=== PATIENT | male | born 1980 | race Caucasian/White ===

== ENCOUNTER 2019-08-14 10:50 | Outpatient (CLI) | payer OTHER, SELFPAY ==
[2019-08-14 11:00] LABS: Basophils Absolute Auto 0.05 K/mm3 (0.00-0.10); Basophils Percent Auto 0.7 % (0.0-1.0); Eosinophils Absolute Auto 0.15 K/mm3 (0.02-0.50); Eosinophils Percent Auto 2.2 % (1.0-6.0); Hematocrit 44.1 % (40.0-54.0); Hemoglobin 15.4 g/dL (14.0-18.0); Immature Granulocyte Absolute 0.03 K/mm3 (0.00-0.00); Immature Granulocyte Percent A 0.4 % (0.0-0.0); Lymphocytes Absolute Auto 2.16 K/mm3 (1.10-4.50); Mean Corpuscular HGB Conc 34.9 g/dL (32.0-36.0); Mean Corpuscular Volume 85.8 fL (78.0-102.0); Mean Platelet Volume 10.4 fl (8.7-11.0); Monocytes Absolute Auto 0.39 K/mm3 (0.10-0.90); Monocytes Percent Auto 5.8 % (2.0-11.0); Neutrophils Percent Auto 58.9 % (50.0-70.0); Platelet Count Result 265 K/mm3 (150-420); Red Blood Count 5.14 M/mm3 (4.70-6.10); Red Cell Distribution Width 12.9 % (11.6-14.4); White Blood Count 6.8 K/mm3 (4.8-10.8)
[2019-08-14 12:13] LABS: Alanine Aminotransferase 36 U/L (16-63); Albumin Level 4.4 g/dL (3.4-5.0); Alkaline Phosphatase 83 U/L (46-116); Anion Gap 11.6 mmol/L (7-16); Aspartate Amino Transferase 18 U/L (15-37); Bilirubin,Total 0.5 mg/dL (0.00-1.00); Blood Urea Nitrogen 22 mg/dL (7-18); Calcium 9.2 mg/dL (8.5-10.1); Carbon Dioxide 28 mmol/L (21-32); Chloride 103 mmol/L (98-108); Cholesterol 238 mg/dL (0-200); Estimated Glomerular Filt Rate > 60; Glucose 104 mg/dL (70-99); HDL Direct 30 mg/dL (40-60); LDL Cholesterol Calculated 182 mg/dL (<130); Osmolality Calculated 289 mOsm/kg (285-295); Potassium 4.6 mmol/L (3.5-5.1); Sodium 138 mmol/L (136-145); Total Protein 7.6 g/dL (6.4-8.2); Triglycerides 131 mg/dL (0-150)
[2019-08-14 12:48] LABS: Thyroid Stimulating Hormone Reflex 0.21 u/IU/mL (0.36-3.74)
[2019-08-14 12:49] LABS: Free T4 Free Thyroxine Reflex 0.94 ng/dL (0.76-1.46)
== END 2019-08-14 10:51 | disposition home or self-care (01) ==
LOC: CHSLAB 10:52
PROVIDERS: PCP Family Medicine; Visit Provider Family Medicine
DX: I10 Essential (primary) hypertension (principal)
CPT/HCPCS: 36415; 80053; 80061; 84439; 84443; 85025

== ENCOUNTER 2019-09-27 10:37 | Outpatient (CLI) | payer OTHER, SELFPAY ==
[2019-09-27 11:34] LABS: T4 Thyroxine 5.97 ug/dL (5.53-11.0)
[2019-09-27 11:47] LABS: Total Triiodothyronine (T3) 1.17 NG/ML (0.97-1.69)
[2019-09-27 12:02] LABS: Free T4 Free Thyroxine 1.14 ng/mL (0.78-2.19)
[2019-09-30 08:30] LABS: T3 Reverse 12 ng/dL (8-25)
== END 2019-09-27 10:38 | disposition home or self-care (01) ==
PROVIDERS: PCP Family Medicine; Visit Provider Family Medicine
DX: R94.6 Abnormal results of thyroid function studies (principal)
CPT/HCPCS: 36415; 84436; 84439; 84480; 84482

== ENCOUNTER 2020-02-21 14:31 | Outpatient (CLI) | payer OTHER, SELFPAY ==
--- NOTE | ~2020-02-21 | XR_ITS ---
EXAMINATION: XR chest 2V 02/21/2020 14:45 INDICATION: Cough for one week. Sore throat. PROCEDURE: 2 view chest COMPARISON: 12/03/2017 FINDINGS: The lungs are clear. The cardiomediastinal silhouette is within normal limits. There are no pleural effusions. There is no pneumothorax suspected. IMPRESSION: 1: NO ACUTE CARDIOPULMONARY DISEASE. Reviewed, dictated and finalized at location A.
== END 2020-02-21 14:32 | disposition home or self-care (01) ==
LOC: CHSIMG 14:33
PROVIDERS: PCP Family Medicine; Visit Provider Family Medicine
DX: R05 Cough (principal)
CPT/HCPCS: 71046

== ENCOUNTER 2020-02-29 18:47 | Emergency (ER) | payer OTHER, SELFPAY ==
--- NOTE | ~2020-02-29 | XR_ITS ---
EXAMINATION: XR chest 2V DATE: 02/29/2020 19:21 INDICATION: Left-sided chest pain. Bronchitis. TECHNIQUE: PA and lateral views of the chest were obtained. COMPARISON: Chest radiograph dated 02/21/2020 and thoracic spine radiograph dated 05/01/2019 FINDINGS: The lungs remain clear with no focal airspace opacities, pulmonary edema, pleural effusion or pneumot horax. The cardiomediastinal silhouette is normal. Unchanged chronic midthoracic compression fracture . Mild thoracic spondylosis. IMPRESSION: 1. No acute cardiopulmonary disease. Reviewed, dictated and finalized at location A.
[2020-02-29 18:52] VITALS: BP 149/99; PULSE 100; RESP 17; TEMP 36.8; O2SAT 98
[2020-02-29 18:55] VITALS: PULSE 105
--- NOTE | 2020-02-29 18:56 | ECG_ITS ---
Measurements Intervals [place] Rate: 96 P: 45 VT: 168 QRS: 12 QRSD: 95 T: 31 QT: 347 QTc: 440 Interpretive Statements SINUS RHYTHM NORMAL ECG Electronically Signed On 02-29-2020 20:32:02 CDT by Ernie Hua D.O.
[2020-02-29 19:04] LABS: Basophils Absolute Auto 0.1 K/mm3 (0.0-0.1); Basophils Percent Auto 0.7 % (0.2-1.2); Eosinophils Absolute Auto 0.2 K/mm3 (0-0.3); Eosinophils Percent Auto 2.5 % (0-4.4); Hematocrit 40.5 % (42.0-52.0); Hemoglobin 14.4 g/dL (14.0-18.0); Immature Granulocyte Absolute 0.04 K/mm3 (0.00-0.031); Immature Granulocyte Percent A 0.5 % (0-0.5); Lymphocytes Absolute Auto 3.19 K/mm3 (0.9-3.2); Lymphocytes Percent Auto 37.8 % (18.3-44.2); Mean Corpuscular HGB Conc 35.6 g/dl (32-36); Mean Corpuscular Volume 84.4 fl (80-100); Mean Platelet Volume 10.2 fl (7.4-10.4); Monocytes Absolute Auto 0.5 K/mm3 (0.1-0.6); Neutrophils Absolute Auto 4.4 K/mm3 (1.3-6.7); Neutrophils Percent Auto 52.5 % (45.5-73.1); Platelet Count Result 285 k/mm3 (150-375); White Blood Count 8.4 K/mm3 (4.5-10.0)
[2020-02-29 19:15] LABS: Anion Gap 8 mmol/L (8-16); Blood Urea Nitrogen 20 mg/dL (9-20); Calcium 9.5 mg/dL (8.4-10.2); Carbon Dioxide 30 mmol/L (22-30); Chloride 103 mmol/L (98-107); Estimated CRCL calculation 106 ml/min; Estimated Glomerular Filt Rate > 60; Glucose 110 mg/dL (75-110); INR 0.9; Potassium 4.4 mmol/L (3.4-5.0); Sodium 141 mmol/L (137-145)
[2020-02-29 19:16] LABS: Partial Thromboplastin Time 28.1 SECONDS (22.3-36.8)
[2020-02-29 19:27] LABS: Troponin I < 0.012 ng/mL (0.000-0.034)
[2020-02-29 19:30] VITALS: BP 136/95; PULSE 88; RESP 18; O2SAT 99
--- NOTE | 2020-02-29 19:43 | ED.CHESTPAIN ---
HPI - Chest Pain General Chief Complaint: Chest Pain Stated Complaint: CP Time Seen by Provider: 02/29/20 19:25 History of Present Illness HPI narrative: Patient is a 39-year-old male who presents to the ER with chest pain. Patient reports the chest pain has been intermittent over the last 3 to 4 days. Last maybe 10 minutes at a time. Its worse when he picks up his children or is active with his upper extremities. No fevers or chills or sweats. No productive cough. It occurs on the left lower aspect of his chest wall and also in the central part. There is no additional radiation. No sweats/nausea/vomiting. No previous coronary disease. No family history of heart disease. 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 Patient also reports that he had previously been diagnosed with some bronchitis in the last week and was treated by his doctor. Unsure if symptoms are related to coughing. Related Data Home Medications Medication Instructions Recorded Confirmed amitriptyline 25 mg PO HS 04/28/19 02/21/20 escitalopram oxalate [Lexapro] 20 mg PO DAILY 04/28/19 02/21/20 lisinopril 10 mg PO DAILY 04/28/19 02/21/20 Allergies Allergy/AdvReac Type Severity Reaction Status Date / Time codeine Allergy Mild Hives Verified 02/29/20 18:57 tramadol Allergy Unknown Rash Verified 02/29/20 18:57 Review of Systems Review of Systems: All systems reviewed & are unremarkable except as noted in HPI and below Constitutional: Constitutional: Denies chills, Denies fever(s) and Denies weakness ENT: Denies nasal congestion and Denies sore throat Cardiovascular: Cardiovascular: Reports chest pain, Denies rapid heart rate and Denies radiating jaw, neck or arm pain Respiratory: Respiratory: Reports cough, Denies dyspnea and Denies wheezing Gastrointestinal: Gastrointestinal: Denies abdominal pain, Denies nausea and Denies vomiting PMF Past Medical History Medical History (Updated 02/29/20 @ 19:52 by Hernandez Bauer MD) Anxiety Bladder wall thickening DDD (degenerative disc disease), thoracolumbar ERIKA (generalized anxiety disorder) HTN (hypertension) Hypertension Surgical History Surgical History (Updated 02/29/20 @ 19:46 by Hernandez Bauer MD) No history of previous surgery Social History Social History Years smoked: 19 Smoking status: Former smoker Smoking end date: 05/31/12 Additional smoking assessment comments: Lee Ann uses e-cigarettes 04/18/19 Alcohol intake: never Substance use: former Substance use type: does not use Other substance usage details: Reports he had been in drug rehab in the past . 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 HEAD: Normocephalic, atraumatic. ENT: Mucous membranes moist. CHEST: Clear to auscultation. No respiratory distress. No reproducible chest wall pain. HEART: Regular rate and rhythm. No murmur heard. Normal peripheral pulses. ABDOMEN: Soft, nontender, nondistended. EXTREMITIES: Normal range of motion. No edema. SKIN: Warm, dry, no rash. NEURO: Alert and oriented x3. Course Course Emergency Course: Musculoskeletal pain versus pleurisy. Discharge home. Patient verbalized understanding of treatment plan. Vital Signs Vital signs: Vital Signs Temperature 98.3 F 02/29/20 18:52 Pulse Rate 100 02/29/20 18:52 Respiratory Rate 17 02/29/20 18:52 Blood Pressure 149/99 H 02/29/20 18:52 Pulse Oximetry 98 02/29/20 18:52 Temperature 98.3 F 02/29/20 18:52 Pulse Rate 75 02/29/20 20:23 Respiratory Rate 15 02/29/20 20:23 Blood Pressure 106/82 02/29/20 20:23 Pulse Oximetry 95 02/29/20 20:23 MDM - Chest Pain Lab Data Result diagrams: 02/29/20 18:58 02/29/20 18:58 Labs: Lab Re
[2020-02-29 20:23] VITALS: BP 106/82; PULSE 75; RESP 15; O2SAT 95
[2020-02-29 21:25] VITALS: BP 117/83; PULSE 73; RESP 16; O2SAT 100
== END 2020-02-29 21:30 | disposition home or self-care (01) ==
PROVIDERS: Emergency Medicine; Emergency Provider Emergency Medicine; PCP Family Medicine
DX: R07.9 Chest pain, unspecified (principal); M51.35 Other intervertebral disc degeneration, thoracolumbar region; F41.1 Generalized anxiety disorder; I10 Essential (primary) hypertension; Z87.891 Personal history of nicotine dependence
CPT/HCPCS: 36415; 71046; 80048; 84484; 85025; 85610; 85730; 93005; 99284

== ENCOUNTER 2020-03-21 23:15 | Emergency (ER) | payer OTHER, SELFPAY ==
[2020-03-21 23:25] VITALS: BP 136/72; PULSE 111; RESP 22; TEMP 37; O2SAT 99
--- NOTE | 2020-03-22 | PC.NURSE ---
Pt stated he was currently suicidal but had no plan. When asked if he had ever made a plan in the past he stated well i tried but it didnt work. Pt refusing to change into green scrubs and allow staff to obtain vital signs. Pt also asked to surrender his personal belongings until he can be evaluated by Crisis which he refused. Pt refusing to stay in his room stating he is going to leave. He is agitated and keeps grabbing at his chest and his clothing. Pt wandering out into hallways and laying on the floor, visibly upset and grabbing his chest. RN asked if he was having chest pain and asked if staff could obtain an EKG. Pt stated my heart is fine i had labs drawn already, its fine. Pt did consent to going into a different room and allowed staff to obtain vital signs and an EKG.
[2020-03-22] MEDS: HALOPERIDOL LACTATE 5 MG/ML VIAL IM (00:03)
[2020-03-22] MEDS: LORazepam INJ (*CRX) 2 MG/ML VIAL IM (00:03)
--- NOTE | 2020-03-22 00:10 | PC.NURSE ---
Pt stated he was currently suicidal but had no plan. When asked if he had ever made a plan in the past he stated well i tried but it didnt work. Pt refusing to change into green scrubs and allow staff to obtain vital signs. Pt also asked to surrender his personal belongings until he can be evaluated by Crisis which he refused. Pt refusing to stay in his room stating he is going to leave. He is agitated and keeps grabbing at his chest and his clothing. Pt wandering out into hallways and laying on the floor, visibly upset and grabbing his chest. This RN asked if he was having chest pain and asked him if staff could obtain an EKG. Pt stated my heart is fine I had labs drawn already, its fine. Pt did consent to going into a different room and allowed staff to obtain vital signs and an EKG. He was still restless and rolling around on the stretcher. He then tried to leave the room again when asked if he could change into the green scrubs and surrender his cellphone. Pt became upset and took off running through the nurses station attempting to leave the unit. Pt was thrashing at staff and subdued by security. Local PD was called to assist. Pt taken back to room where he was thrashing and verbally threatening staff. Pt placed in locking restraints per physician order. Orders obtained for haldol and ativan which were then administered. Pt continued to thrash and yell. Pt stated that he had been drinking and was a drug addict but would not tell staff the drugs he had taken. He only stated that he was being seen by pain management for back pain and was taking Lyrica. Will continue to monitor patient at this time. Sitter and security at bedside.
--- NOTE | 2020-03-22 00:38 | ED.ANXIETY ---
HPI - Anxiety General Chief Complaint: Anxiety Stated Complaint: si Time Seen by Provider: 03/21/20 23:51 Source: patient, EMS and RN notes reviewed Mode of arrival: EMS Limitations: no limitations History of Present Illness HPI narrative: Patient is a 39-year-old male who arrives by EMS. Per EMS patient called because of anxiety. He has EtOH on board. In route he reported that he was suicidal to PD. Patient arrived in ED and stated suicidal ideations without a plan to RN. Per protocol patient's belongings were attempted to be held and patient decided that he did not want to stay any longer in the emergency department. Patient made attempt to flee, aggressive with staff and security. MD complaint: anxiety and other (SI) Related Data Home Medications Medication Instructions Recorded Confirmed amitriptyline 25 mg PO HS 04/28/19 02/21/20 escitalopram oxalate [Lexapro] 20 mg PO DAILY 04/28/19 02/21/20 lisinopril 10 mg PO DAILY 04/28/19 02/21/20 Allergies Allergy/AdvReac Type Severity Reaction Status Date / Time codeine Allergy Mild Hives Verified 02/29/20 18:57 tramadol Allergy Unknown Rash Verified 02/29/20 18:57 Review of Systems Review of Systems: Narrative: CONSTITUTIONAL: Denies fever, chills, or sweats. EYES: Denies visual changes, redness, or discharge. ENT: Denies rhinorrhea, congestion, sore throat, or otalgia. CARDIOVASCULAR: Denies chest pain, palpitations, or edema. RESPIRATORY: Denies cough or dyspnea. GASTROINTESTINAL: Denies abdominal pain, nausea, vomiting, or diarrhea. GENITOURINARY: Denies dysuria or hematuria. SKIN: Denies rash or itching. MUSCULOSKELETAL: Denies back pain, joint pain, or myalgia. NEUROLOGIC: Denies headache, numbness, dizziness, or weakness. PSYCHIATRIC: Reports anxiety or depression. [facility] Past Medical History Medical History Anxiety Bladder wall thickening DDD (degenerative disc disease), thoracolumbar ERIKA (generalized anxiety disorder) HTN (hypertension) Hypertension Surgical History Surgical History No history of previous surgery Family History Family History Father Hepatitis C Social History Social History Years smoked: 19 Smoking status: Former smoker Smoking end date: 05/31/12 Additional smoking assessment comments: Lee Ann uses e-cigarettes 04/18/19 Alcohol intake: never Substance use: former Substance use type: does not use Other substance usage details: Reports he had been in drug rehab in the past . 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 EYES: No redness or drainage. Conjunctiva are normal. ENT: Mucous membranes pink and moist. CHEST: No respiratory distress. Clear to auscultation. HEART: Regular rate and rhythm. No murmur appreciated. Normal peripheral pulses. GI: Soft, nontender without rebound, or guarding. EXTREMITIES: Normal range of motion. SKIN: Warm, dry, no rash. NEURO: No focal deficits. Alert and oriented x3. PSYCH: Patient appears anxious, expresses suicidal ideation to staff. Course Reevaluation(s) Reevaluation #1: Patient released from restraints at this time. Patient appears calm and cooperative and aware that if he becomes violent or aggressive that restraints could happen again. Patient verbal contract for safety at this time. Date: 03/22/20 Time: 00:55 Vital Signs Vital signs: Vital Signs Temperature 37.0 C 03/21/20 23:25 Pulse Rate 111 H 03/21/20 23:25 Respiratory Rate 22 H 03/21/20 23:25 Blood Pressure 136/72 03/21/20 23:25 Pulse Oximetry 99
[2020-03-22 00:51] LABS: Basophils Absolute Auto 0.1 K/mm3 (0.0-0.1); Basophils Percent Auto 0.9 % (0.2-1.2); Eosinophils Absolute Auto 0.1 K/mm3 (0-0.3); Eosinophils Percent Auto 1.7 % (0-4.4); Hematocrit 42.7 % (42.0-52.0); Hemoglobin 15.1 g/dL (14.0-18.0); Immature Granulocyte Absolute 0.05 K/mm3 (0.00-0.031); Immature Granulocyte Percent A 0.7 % (0-0.5); Lymphocytes Percent Auto 49.4 % (18.3-44.2); Mean Corpuscular HGB Conc 35.4 g/dl (32-36); Mean Corpuscular Hemoglobin 30.1 pg (26-34); Mean Corpuscular Volume 85.2 fl (80-100); Mean Platelet Volume 10.2 fl (7.4-10.4); Monocytes Absolute Auto 0.5 K/mm3 (0.1-0.6); Monocytes Percent Auto 6.1 % (2.6-8.5); Neutrophils Absolute Auto 3.2 K/mm3 (1.3-6.7); Neutrophils Percent Auto 41.2 % (45.5-73.1); Platelet Count Result 349 k/mm3 (150-375); Red Blood Count 5.01 M/mm3 (4.6-6.20); Red Cell Distribution Width 13.8 % (11.5-14.5); White Blood Count 7.7 K/mm3 (4.5-10.0)
[2020-03-22 01:03] LABS: Ethanol 224 mg/dL (<10)
[2020-03-22 01:05] LABS: Alanine Aminotransferase 24 U/L (4-50); Albumin Level 4.4 g/dL (3.5-5.1); Alkaline Phosphatase 116 U/L (38-126); Anion Gap 21 mmol/L (8-16); Aspartate Amino Transferase 27 U/L (17-59); Bilirubin,Total 0.3 mg/dL (0.2-1.3); Blood Urea Nitrogen 15 mg/dL (9-20); Carbon Dioxide 17 mmol/L (22-30); Chloride 110 mmol/L (98-107); Estimated CRCL calculation 107 ml/min; Estimated Glomerular Filt Rate > 60; Glucose 106 mg/dL (75-110); Potassium 3.1 mmol/L (3.4-5.0); Sodium 148 mmol/L (137-145)
[2020-03-22 01:35] LABS: Thyroid Stimulating Hormone 0.215 uIU/mL (0.465-4.680)
[2020-03-22 02:41] LABS: Add Urine Microscopic? YES; Appearance Urine Clear (Clear); Bilirubin Urine Negative (Negative); Blood Urine 1+ (Negative); Color Urine Yellow (Yellow); Glucose Urine UA Negative (Negative); Ketones Urine Trace mg/dL (Negative); Leukocyte Esterase Ur Negative LEU/UL (Negative); Mucus Urine Rare /lpf; Nitrate Urine Negative (Negative); Protein Urine 1+ mg/dL (Negative); RBC Urine 0-2 /hpf (0-2); Specific Grav Ur 1.017 (1.001-1.035); Squamous Epithelial Cell Urine Rare /hpf (Few); Urobilinogen Urine Negative mg/dL (<2.0); WBC Urine 0-3 /hpf
[2020-03-22 02:45] LABS: Amphetamine Screen Urine Positive (Negative); Barbiturate Screen Urine Negative (Negative); Benzodiazepines Screen Urine Negative (Negative); Cannabinoid Screen Urine Positive (Negative); Cocaine Screen Urine Negative (Negative); Methadone Screen Urine Negative (Negative); Opiate Screen Urine Negative (Negative); Phencyclidine Screen Urine Negative (Negative)
[2020-03-22 03:27] VITALS: BP 128/72; PULSE 78; RESP 16; O2SAT 99
[2020-03-22 06:41] LABS: Ethanol 91 mg/dL (<10)
[2020-03-22 07:14] VITALS: BP 145/94; PULSE 87; RESP 18; O2SAT 96
--- NOTE | 2020-03-22 07:19 | PC.NURSE ---
Pt allows this RN to do vitals without incident. This RN asked pt is he has ever had thought of harming or killing himself, pt replied no , I then asked pt if in the past month if he had a plan to harm or kill himself. Pt then replies no . I asked pt if he wanted breakfast and he stated yes . Pt also request a cold soda . medical laboratory technologist took pt a soda. This RN informed that pts [place] suicide risk went to No risk.
[2020-03-22 07:55] LABS: Ethanol 64 mg/dL (<10)
--- NOTE | 2020-03-22 08:52 | PC.NURSE ---
PT ETOH is under 80. Called Crisis and spoke with Laura and she states she will call out to outreach and let them know. Informed charge nurse of this.
--- NOTE | 2020-03-22 09:02 | PC.NURSE ---
Carla from Crisis called and states she will be out shortly to see pt.
--- NOTE | 2020-03-22 09:32 | PC.NURSE ---
Carla from Crisis here to see pt.
[2020-03-22 13:07] LABS: SARS-CoV-2 RNA PCR Negative
== END 2020-03-22 10:26 | disposition home or self-care (01) ==
PROVIDERS: Emergency Medicine; Emergency Provider Nurse Practitioner
DX: F15.10 Other stimulant abuse, uncomplicated (principal); F10.929 Alcohol use, unspecified with intoxication, unspecified; F41.1 Generalized anxiety disorder; I10 Essential (primary) hypertension; Z20.828 Contact with and (suspected) exposure to other viral communicable diseases
CPT/HCPCS: 36415; 51701; 80053; 80307; 81001; 84443; 85025; 87635; 96372; 99284; C9803; J1630; J2060; U0003

== ENCOUNTER 2020-08-05 13:56 | Outpatient (CLI) | payer OTHER, SELFPAY ==
--- NOTE | ~2020-08-05 | XR_ITS ---
EXAMINATION:XR cervical spine 4-5V DATE: 08/05/2020 14:16 INDICATION: Cervicalgia TECHNIQUE: AP, lateral, lateral swimmers and odontoid views of the cervical spine are provided. COMPARISON: None FINDINGS: There is 1 mm of retrolisthesis of C5 on C6. The odontoid is intact. No fracture is identif ied. The vertebral body heights are normal. There is mild loss of intervertebral disc space height at C5-6 and C6-7. Small degenerative osteophytes project from the anterior endplates of multiple verteb ral bodies. There is mild facet and uncovertebral joint osteoarthritis at C5-6 and C6-7. Prevertebral soft tissues are normal. IMPRESSION: 1. Mild cervical spondylosis without acute findings. Reviewed, dictated and finalized at location A. HELP DESK ANALYST
== END 2020-08-05 13:57 | disposition home or self-care (01) ==
LOC: ANHIMG 14:08
PROVIDERS: PCP Family Medicine; Visit Provider Nurse Practitioner Adult Health
DX: M54.2 Cervicalgia (principal); M47.812 Spondylosis without myelopathy or radiculopathy, cervical region
CPT/HCPCS: 72050

== ENCOUNTER 2020-08-07 12:00 | Outpatient (CLI) | payer OTHER, SELFPAY ==
[2020-08-07 12:19] LABS: Basophils Absolute Auto 0.06 K/mm3 (0.00-0.10); Basophils Percent Auto 0.7 % (0.0-1.0); Eosinophils Absolute Auto 0.21 K/mm3 (0.02-0.50); Eosinophils Percent Auto 2.5 % (1.0-6.0); Hematocrit 45.2 % (40.0-54.0); Hemoglobin 15.9 g/dL (14.0-18.0); Immature Granulocyte Absolute 0.04 K/mm3 (0.00-0.00); Immature Granulocyte Percent A 0.5 % (0.0-0.0); Lymphocytes Absolute Auto 2.55 K/mm3 (1.10-4.50); Lymphocytes Percent Auto 30.3 % (18.0-42.0); Mean Corpuscular HGB Conc 35.2 g/dL (32.0-36.0); Mean Corpuscular Hemoglobin 29.1 pg (27.0-31.0); Mean Corpuscular Volume 82.6 fL (78.0-102.0); Mean Platelet Volume 10.8 fl (8.7-11.0); Monocytes Absolute Auto 0.55 K/mm3 (0.10-0.90); Monocytes Percent Auto 6.5 % (2.0-11.0); Neutrophils Percent Auto 59.5 % (50.0-70.0); Platelet Count Result 314 K/mm3 (150-420); Red Blood Count 5.47 M/mm3 (4.70-6.10); Red Cell Distribution Width 13.4 % (11.6-14.4); White Blood Count 8.4 K/mm3 (4.8-10.8)
[2020-08-07 13:13] LABS: Rheumatoid Factor Screen Negative (Negative)
[2020-08-07 13:33] LABS: Alanine Aminotransferase 33 U/L (16-63); Albumin Level 4.5 g/dL (3.4-5.0); Alkaline Phosphatase 110 U/L (46-116); Anion Gap 14 mmol/L (8-16); Aspartate Amino Transferase 19 U/L (15-37); Bilirubin,Total 0.5 mg/dL (0.00-1.00); Blood Urea Nitrogen 22 mg/dL (7-18); CRP < 0.2 mg/dL (0.0-0.9); Calcium 9.2 mg/dL (8.5-10.1); Carbon Dioxide 24 mmol/L (21-32); Chloride 101 mmol/L (98-108); Estimated Glomerular Filt Rate 58; Ferritin 193 ng/mL (26-388); Glucose 99 mg/dL (70-99); Iron 64 ug/dL (65-175); Osmolality Calculated 291 mOsm/kg (285-295); Percent Iron Saturation 20 % (12-57); Potassium 4.3 mmol/L (3.5-5.1); Sodium 139 mmol/L (136-145); Thyroid Stimulating Hormone Reflex 0.67 u/IU/mL (0.36-3.74); Total Protein 7.9 g/dL (6.4-8.2)
[2020-08-07 13:39] LABS: Erythrocyte Sedimentation Rate 8 mm/hr (0-15)
[2020-08-09 21:50] LABS: Anti Cyclic Citrullinated Pept <16 Units (<20)
== END 2020-08-07 12:01 | disposition home or self-care (01) ==
LOC: CHSLAB 12:02
PROVIDERS: PCP Family Medicine; Visit Provider Family Medicine
DX: M25.50 Pain in unspecified joint (principal); I10 Essential (primary) hypertension; R79.89 Other specified abnormal findings of blood chemistry
CPT/HCPCS: 36415; 80053; 82728; 83540; 83550; 84443; 85025; 85652; 86038; 86039; 86140; 86200; 86430

== ENCOUNTER 2020-08-23 13:30 | Outpatient (RCR) | payer OTHER, SELFPAY ==
--- NOTE | 2020-07-17 15:48 | PTOPEVAL ---
Thank you for referring Jacky Hampton to [facility] [place].? The patient is scheduled to be seen for therapy? 1 x/week for 5 weeks. Please review, sign, date and return this plan of care KALIA. I agree with and certify that the following plan of care is medically necessary. Referring Physician Date Attending Provider: Jessica Valdez, PEOPLESOFT ADMINISTRATOR Physical Therapy Evaluation Problem Diagnosis neck pain Onset 3 months Cause unknown Additional Evaluation Detail History of thoracic fracture in 05/18 Subjective Information He reports he had neck pain a Query Text:As Reported By Patient/ 1 years ago, but improved Family after 1 month. No PT or chiropractor treatment for neck. He had numbness in left index finger. He states he had a fall down his steps 3 months ago. He thinks he fractured his tailbone. He slipped on the steps hitting his buttocks and sliding down to the floor. He did not see a MD after the fall. He reports increased symptoms with left finger numbness with the increased neck pain. He reports limitations with lifting, sitting, driving car, sleeping. He sleeps on right side with 1 pillow. He reports increased pain with neck motion with radiating symptoms into upper back region. He does the dishes, does not have to clean. He is able to carry light objects. He is not working. Diagnostic Tests X-Rays For This Problem No Previous Treatments Previous Treatments For This Problem no previous treatment Pain Assessment Bilateral Neck Reported Pain Level 4 Pain Description Aching,Numbness,Radiating, Sharp,Tingling Pain Frequency Chronic,Continuous Lowest Pain Intensity 3 Greatest Pain Intensity 8 Cervical and Lumbar ROM Cervical Flexion (0-60) 60 Query Text:Active in Degrees Cervical Extension (0-70) 60 Query Text:Active in Degrees Cervical Lateral Flexion Right (0-50) 30 Query Text:Active in Degrees Cervical Lateral Flexion Left (0-50) 20 Query Text:Active in Degrees Cervical Rotation Ri
--- NOTE | 2020-07-26 14:45 | PCPTNOTE ---
Patient no showed for apt this afternoon. Called and spoke to patient who thought apt was next Wednesday. Reminded patient of time and to call if he cannot make it. Patient apologized.
--- NOTE | 2020-08-23 14:24 | PTOPEVAL ---
Thank you for referring Jacky Hampton to [facility] [place].? Pt has attended 5 therapy visits from 07/17/20 to 07/26/20 to address chronic neck pain and symptoms. As a result of skilled therapy he demonstrates improved pain level at rest, improve motion, and strength. He is independent with his home program. He has reached maximal benefit of skilled therapy services at this time. Plan to D/C skilled therapy with Jacky to continue with home program. Please review, sign, date and return this plan of care KALIA. I agree with and certify that the following plan of care is medically necessary. Referring Physician Date Attending Provider: Jessica Valdez, WAITER/WAITRESS COUNTER Physical Therapy Progress Note/Discharge Note Diagnosis neck pain Onset 3 months Cause unknown Additional Evaluation Detail History of thoracic fracture in 05/18 Subjective Information Denies any improvement withe Query Text:As Reported By Patient/ the numbness of his left index Family finger. Symptoms increase when neck pain is greater. He denies any problems with lifting his young kids at home . He is sleeping better after the medication change. Pain Assessment Self Report Pain Assessment Bilateral Neck Reported Pain Level 5 Pain Description Numbness,Pulling,Radiating, Tingling,With Movement Pain Frequency Intermittent Lowest Pain Intensity 0 Greatest Pain Intensity 7 Pain Aggravating Factors Prolonged Position,Sitting Pain Behaviors Anxious Cervical and Lumbar ROM Cervical Flexion (0-60) 70 Cervical Extension (0-70) 60 Cervical Lateral Flexion Right (0-50) 32 Cervical Lateral Flexion Left (0-50) 35 Cervical Rotation Right (0-90) 70 Cervical Rotation Left (0-90) 75 Cervical ROM Comments pain with all motions Upper Extremity Range of Motion General Upper Extremity Range of Motion Reason Not Measured WNL/Left,WNL/Right Cervical and Lumbar Muscle Testing Cervical Muscle Testing Cervical Flexion 5 Normal Cervical Extension 5 Normal Cervical Lateral Flexion Right 5 Normal Cervical Lateral Flexion Left 5 Normal Cervical Functional Strength no pain with resistance Upper Extremity Muscle Strength Testing General Upper Extremity Strength Gross Upper Extremity Strength Comments middle trap: 3+/5 lower trap: 3/5 Palpation Assessment Palpation no tenderness of upper back, paraspinals of cerivcal/ thoracic region, scalene/SCM and trap muscles
== END 2020-08-26 13:09 | disposition home or self-care (01) ==
LOC: ANHPT 13:30
PROVIDERS: PCP Family Medicine; Visit Provider Nurse Practitioner Adult Health
DX: M54.2 Cervicalgia (principal)
CPT/HCPCS: 97110; 97140; 97162

== ENCOUNTER 2021-08-07 10:13 | Outpatient (CLI) | payer OTHER, SELFPAY ==
[2021-08-07 11:09] LABS: Rheumatoid Factor Screen Negative (Negative)
[2021-08-07 11:14] LABS: CRP < 0.5 mg/dL (0.0-0.9)
[2021-08-07 11:19] LABS: Thyroid Stimulating Hormone Reflex 0.47 u/IU/mL (0.36-3.74)
[2021-08-07 11:47] LABS: Erythrocyte Sedimentation Rate 14 mm/hr (0-15)
[2021-08-10 20:48] LABS: ANA Cascade Screen Negative (Negative)
== END 2021-08-07 10:14 | disposition home or self-care (01) ==
LOC: CHSLAB 10:16
PROVIDERS: PCP Family Medicine; Visit Provider Family Medicine
DX: M25.50 Pain in unspecified joint (principal); E11.9 Type 2 diabetes mellitus without complications
CPT/HCPCS: 36415; 84443; 85652; 86038; 86140; 86430

== ENCOUNTER 2021-08-12 10:00 | Outpatient (CLI) | payer OTHER, SELFPAY ==
--- NOTE | ~2021-08-12 | XR_ITS ---
EXAMINATION: XR elbow RT min 3V DATE: 08/12/2021 10:29 INDICATION: Right elbow pain TECHNIQUE: Anteroposterior, two oblique and lateral views of the right elbow were obtained. COMPARISON: None. FINDINGS: Alignment is normal. No fracture or joint effusion. Joint spaces are normal. No erosions Soft tissues are unremarkable. IMPRESSION: 1. Negative right elbow radiographs. Reviewed, dictated and finalized at location A.
--- NOTE | ~2021-08-12 | XR_ITS ---
EXAMINATION: XR elbow LT min 3V DATE: 08/12/2021 10:30 INDICATION: Left elbow pain TECHNIQUE: Anteroposterior, two oblique and lateral views of the left elbow were obtained. COMPARISON: None. FINDINGS: Alignment is normal. No fracture or joint effusion. Joint spaces are normal. No erosions. Soft tissue s are unremarkable. IMPRESSION: 1. Negative left elbow radiographs. Reviewed, dictated and finalized at location A.
--- NOTE | ~2021-08-12 | XR_ITS ---
EXAMINATION: XR sacroiliac joints min 3V DATE: 08/12/2021 10:30 INDICATION: Sacroiliac joint pain TECHNIQUE: Frontal, and left and right oblique views of the bilateral sacralized joints were obtained . COMPARISON: None. FINDINGS: Bone alignment is normal. No fracture. Bilateral hip and sacral joint spaces are normal. No erosions or subarticular sclerosis to suggest an inflammatory sacroiliitis. Soft tissues are unremarkable. IMPRESSION: 1. Negative sacroiliac joint radiographs. Reviewed, dictated and finalized at location A.
== END 2021-08-12 10:01 | disposition home or self-care (01) ==
LOC: ANHIMG 10:03
PROVIDERS: PCP Family Medicine; Visit Provider Family Medicine
DX: M25.522 Pain in left elbow (principal); M25.521 Pain in right elbow
CPT/HCPCS: 72202; 73080

== ENCOUNTER 2022-02-05 14:00 | Outpatient (RCR) | payer OTHER, SELFPAY ==
--- NOTE | 2021-11-11 12:50 | PTOPEVAL ---
PHYSICAL THERAPY INITIAL EVALUATION. Thank you for referring Jacky Hampton to [facility].? The patient is scheduled to be seen for therapy? 2x/week for 4 weeks. Please review, sign, date and return this plan of care KALIA. I agree with and certify that the following plan of care is medically necessary. Referring Physician Date Attending Provider: Jessica Valdez, SAP BW ARCHITECT *PT Outpatient Evaluation Start: 11/11/21 Evaluation Information Diagnosis Sacroiliitis Onset ~2 years Subjective Information Pt states a couple of years Query Text:As Reported By Patient/ ago he fell down the stairs Family and landed straight on his tail bone and he assumed it was broken and decided to let it heal. Two years later he feels like it is still not healed. His pain has increased significantly in the last month. He also reports burning sensations on lateral aspect of his hips, benedict. He states this burning pain has gotten more intense lately and has been spreading more distally. This has limited him in how much he can exercise, sitting up straight in a chair, increased time standing, driving, and completing daily chores. He states if he pushes it to where he gets pain, he will be unable to walk for a few days but it generally will ease a few days after. He states currently the pain is coming, but not easing back down to his baseline. He reports radiating symptoms down into the ankle benedict. Pt states laying flat relieves most of his pain. Pain Assessment Right Sacrum Reported Pain Level 5 Pain Description Cramping,Dull,Sharp,Shooting Pain Radiation Back,Left Leg,Right Leg Pain Frequency Acute,Intermittent Lowest Pain Intensity 2 Greatest Pain Intensity 7 Pain Aggravating Factors Bending,Exercise/Activity, Lifting,Sitting,Stair Climbing ,Walking,Weight Bearing/ Standing Cervical and Lumbar ROM
--- NOTE | 2021-11-12 11:28 | PCPTNOTE ---
Patient did not show up for scheduled appointment this date.
--- NOTE | 2021-11-25 09:35 | PCPTNOTE ---
Patient called & cancelled scheduled appointment this date due to not feeling well.
--- NOTE | 2021-12-09 08:53 | PCPTNOTE ---
Patient called & cancelled scheduled appointment this date due to his daughter having surgery. He did not reschedule.
--- NOTE | 2021-12-25 10:43 | PTOPEVAL ---
PHYSICAL THERAPY PROGRESS REPORT. Thank you for referring Jacky Hampton to [facility].? The patient is being placed on hold pending follow up with referring provider. Please review, sign, date and return this plan of care KALIA. I agree with and certify that the following plan of care is medically necessary. Referring Physician Date Attending Provider: Jessica Valdez, BOOKING OFFICER Evaluation Information Diagnosis Sacroiliitis Onset ~2 years Subjective Information Pt states his back got better Query Text:As Reported By Patient/ for a while but he threw out Family his upper back and now the low back is worse. He states whats great is that his legs have not gone completely numb to where he cannot walk. He states his tailbone still hurts every time he sits and he wonders if there is a second issue. Pt states sleep is still challenging. Pt states therapy is going well and he has a little less shooting pain after the stretching. He states his lower back and tailbone are unchanged, and he is waking up to hip pain. He is unable to sit still while sitting, he has to weight shift constantly . He also reports numbness and tingling in his L foot. Pt reports 10% improvement in some aspects but worsening in other aspects. He states he has to clean the house quickly the other day, in less than an hour, then the next day he was unable to do anything. Pain Assessment Right Sacrum Reported Pain Level 6 Pain Description Aching,Pressure,Tightness Lowest Pain Intensity 3 Greatest Pain Intensity 8 Lumbar ROM Lumbar Flexion (0-90) 50 Lumbar Extension (0-40) 10 Lateral Flexion 4 in able lateral knee joint Query Text:Active Hands to: line benedict Lateral Rotation Right (0-45) 20 Lateral Rotation Left (0-45) 20 Lumbar ROM 50% of Normal Lower Extremity Range of Motion General Lower Extremity Range of Motion WFL/Left,WFL/Right Lower Extremity Muscle Strength Testing Gross Lower Extremity Strength Benedict hip abduction 3-/5
--- NOTE | 2022-02-10 11:06 | PCPTNOTE ---
This treatment is being continued on visit number [id number]. Please see documentation on both accounts to view progress. Completed interventions, outcomes, and problems have been marked as Inactive to facilitate the copying of the Care plan routine for recurring accounts.
== END 2022-02-09 23:59 | disposition home or self-care (01) ==
LOC: ANHPT 14:00
PROVIDERS: PCP Family Medicine; Visit Provider Nurse Practitioner Adult Health
DX: M46.1 Sacroiliitis, not elsewhere classified (principal)
CPT/HCPCS: 97014; 97110; 97140; 97161; 97530; G0283

== ENCOUNTER 2022-02-24 13:17 | Outpatient (CLI) | payer OTHER, SELFPAY ==
--- NOTE | ~2022-02-24 | XR_ITS ---
EXAMINATION: XR lumbar spine 2-3V DATE: 02/24/2022 13:42 INDICATION: Lumbar radiculopathy TECHNIQUE: Anteroposterior and lateral views of the lumbar spine, and cone-down lateral view of the l umbosacral junction were obtained. COMPARISON: 05/01/2019 FINDINGS: There are 3 mm of retrolisthesis of L4 on L5 and L5 on S1. There is no fracture. The verteb ral body heights are maintained. There is mild loss of intervertebral disc space height at L4-5 and L 5-S1. The bowel gas pattern is normal. IMPRESSION: 1. Mild lumbar spondylosis without acute findings or significant interval change. Reviewed, dictated and finalized at location A. IMPRESSION: 1. Mild lumbar spondylosis without acute findings or significant interval szymanski [place]
== END 2022-02-24 13:18 | disposition home or self-care (01) ==
LOC: ANHIMG 13:20
PROVIDERS: PCP Family Medicine; Visit Provider Nurse Practitioner Adult Health
DX: M47.817 Spondylosis without myelopathy or radiculopathy, lumbosacral region (principal); M48.07 Spinal stenosis, lumbosacral region
CPT/HCPCS: 72100

== ENCOUNTER 2022-03-18 11:45 | Outpatient (RCR) | payer OTHER, SELFPAY ==
--- NOTE | 2022-02-10 11:07 | PCPTNOTE ---
The treatment documented on this account is a continuation of the treatment documented on visit number [id number]. Please see documentation on both accounts to view progress. The Plan of Care has been transitioned and updated within the new V#. I have addressed and agree with the discipline specific Problems, Interventions, and Goals for the current certification period. Completed interventions, outcomes, and problems have been marked as Inactive to facilitate the copying of the Care plan routine for recurring accounts.
--- NOTE | 2022-02-12 10:23 | PCPTNOTE ---
Patient did not show up for scheduled re-evaluation this date. Called and left voicemail with patient, told him to follow up with clinic to reschedule and that if do not hear back within a week we will discharge.
--- NOTE | 2022-02-17 08:51 | PTOPPROG ---
Assessment and note entered by Wing Hurt, PT, DPT Evaluation Information Assessment Status Progress Diagnosis low back and SIJ pain Onset chronic Subjective Information Pt states he received injections on 02/04/22 and they did not work. He states pain management wants him to continue therapy since the injections did not work. Pt reports good and bad days regrading his pain. He states on these bad days if when he has the shooting pains down his leg. Assessment PT Clinical Summary Jacky presents to therapy today for his progress report following 8 visits of therapy from 11/11/21 to 02/05/22. Today he demonstrates decreased hip and core strength that is grossly 3+/5. He also demonstrates a longer LLE in supine, in long sitting, both positions with equal and level pelvic alignment. Pt was educated on the benefits of a heel life and how to ease into a wear schedule. Continuation of skilled physical therapy services are indicated to follow up on heel lift, to manage, to improve LE strength, to improve core strength, and to promote unlimited functional mobility. Modified Oswestry: 27/50, 54% disability Plan of Care Interventions Electrical Stimulation,Gait Training,Manual Therapy,Neuro Re-education,Patient/Caregiver Educati,Therapeutic Activities,Therapeutic Exercise PT Services Indicated Yes Treatment Frequency and 1x/wk for 5 wks Duration These treatments will address the objective and functional deficits as defined above. The patient will be advanced safely and appropriately in order for the patient to progress towards his/her prior level of function. Additional exercises will be introduced and as well as a comprehensive home exercise program upon discharge, if needed, ?to ensure carryover of functional gains achieved in the clinic. This treatment plan has been reviewed and agreement upon by the patient.
--- NOTE | 2022-03-02 14:29 | PCPTNOTE ---
Patient called & cancelled scheduled appointment this date due to being sick.
--- NOTE | 2022-03-24 10:28 | PCPTNOTE ---
Patient did not show up for scheduled re-evaluation this date. He has been re-scheduled.
--- NOTE | 2022-04-06 08:44 | PCPTNOTE ---
Patient called & cancelled scheduled appointment this date due to the appointment not showing up on his calendar early enough to remind him.
--- NOTE | 2022-05-11 11:47 | PTOPDC ---
Assessment and note entered by Wing Hurt, PT, DPT Evaluation Information Assessment Status Discharge - Pt Not Present Diagnosis low back and SIJ pain Onset chronic Subjective Information Pt has not returned for a treatment since 03/18/22 and has not called to schedule any other appointments. He will therefore be discharged at this time. Assessment PT Clinical Summary If pt is to return to therapy at a later date, he will need a new order.
== END 2022-05-13 23:59 | disposition home or self-care (01) ==
LOC: ANHPT 11:45
PROVIDERS: PCP Family Medicine; Visit Provider Nurse Practitioner Adult Health
DX: M46.1 Sacroiliitis, not elsewhere classified (principal)
CPT/HCPCS: 97014; 97110; 97140; 97530; 99199; G0283

== ENCOUNTER 2022-03-28 12:41 | Outpatient (CLI) | payer OTHER, SELFPAY ==
--- NOTE | ~2022-03-28 | MR_ITS ---
EXAMINATION: MR lumbar spine wo con DATE: 03/28/2022 13:10 INDICATION: RADICULOPATHY, LUMBAR REGION . TECHNIQUE: Magnetic resonance imaging (MRI) of the lumbar spine was performed without intravenous con trast. Sequences included sagittal T2-weighted FSE, sagittal T2-weighted FS FSE, sagittal T1-weighted FSE, and axial T2-weighted FSE. COMPARISON: None FINDINGS: The last fully formed and hydrated disc is designated L5-S1. Mild reactive marrow changes a t the L5-S1 disc space. Conus terminates at L1-2. Multilevel disc dehydration and height loss. Partia lly visualized simple right renal cyst The following disc levels are specifically discussed: T11-T12: The disc does not extend beyond the endplate margin. There is no facet joint osteoarthritis. There is no neural foraminal stenosis. There is no central canal stenosis. T12-L1: The disc does not extend beyond the endplate margin. There is no facet joint osteoarthritis. There is no neural foraminal stenosis. There is no central canal stenosis. L1-L2: The disc does not extend beyond the endplate margin. There is no facet joint osteoarthritis. T here is no neural foraminal stenosis. There is no central canal stenosis. L2-L3: Mild diffuse bulge. There is no facet joint osteoarthritis. There is no neural foraminal steno sis. There is no central canal stenosis. L3-L4: Mild diffuse bulge. There is mild bilateral facet joint osteoarthritis. There is no neural for aminal stenosis. There is no central canal stenosis. L4-L5: Moderate diffuse bulge. There is mild facet joint osteoarthritis. There is mild bilateral infe rior neural foraminal stenosis. There is no central canal stenosis. L5-S1: Moderate diffuse bulge on which is superimposed a broad-based left subarticular/foraminal disc protrusion. Small circumferential disc present. There is moderate facet joint osteoarthritis. There is mild right and moderate left neural foraminal stenosis. There is no central canal stenosis. IMPRESSION: 1. Moderate degenerative disc disease at L5-S1, with a left subarticular/foraminal protrusion that ca uses moderate left neural foraminal narrowing. Reviewed, dictated and finalized at location K. IMPRESSION: 1. Moderate degenerative disc disease at L5-S1, with a left subarticular/forami nal protrusion that causes moderate left neural foraminal narrowing.
== END 2022-03-28 12:42 | disposition home or self-care (01) ==
LOC: ANHIMG 12:43
PROVIDERS: PCP Family Medicine; Visit Provider Nurse Practitioner Adult Health
DX: M54.16 Radiculopathy, lumbar region (principal); M51.37 Other intervertebral disc degeneration, lumbosacral region
CPT/HCPCS: 72148

== ENCOUNTER 2022-07-23 13:49 | Emergency (ER) | payer MEDICAID, SELFPAY ==
[2022-07-23 14:02] VITALS: BP 114/99; PULSE 82; RESP 16; TEMP 36.3; O2SAT 96
--- NOTE | 2022-07-23 14:03 | ED.URI ---
HPI - URI/Sore Throat General Chief Complaint: Upper Respiratory Infection Stated Complaint: wants strep test, sinus congestion Time Seen by Provider: 07/23/22 14:06 History of Present Illness HPI Narrative: 41 y/o male presented for c/o sinus 'tingling' and is concerned about strep throat. Reports occasional headache and last week he had a productive cough. Endorses both his children tested positive this week. Denies sore throat, n/v/d/f/c. Taking mucinex for symptoms. Related Data Home Medications Medication Instructions Recorded Confirmed baclofen 5 mg tablet 2.5 mg PO BID 01/12/22 aripiprazole 2 mg tablet (Abilify) 2 mg PO DAILY 03/03/22 eszopiclone 3 mg tablet 3 mg PO HS 07/23/22 07/23/22 fluoxetine 20 mg capsule 20 mg PO DAILY 07/23/22 07/23/22 lamotrigine 150 mg tablet 150 mg PO DAILY 07/23/22 07/23/22 Allergies Allergy/AdvReac Type Severity Reaction Status Date / Time codeine Allergy Mild Hives Verified 07/23/22 13:58 tramadol Allergy Unknown Rash Verified 07/23/22 13:58 Review of Systems Review of Systems: per HPI [facility] Past Medical History Medical History Anxiety Bladder wall thickening DDD (degenerative disc disease), thoracolumbar ERIKA (generalized anxiety disorder) HTN (hypertension) Hypertension Irritable bowel syndrome (IBS) Irritable bowel syndrome with diarrhea Low TSH level Polyarthralgia Surgical History Surgical History No history of previous surgery Family History Family History Father Hepatitis C Social History Social History Years smoked: 19 Smoking status: Former smoker Smoking end date: 05/31/12 Additional smoking assessment comments: Lee Ann uses e-cigarettes 04/18/19 Alcohol intake: never Substance use: former Substance use type: does not use Other substance usage details: Reports he had been in drug rehab in the past . Living arrangements: with family Occupation/Education: occupation Additional occupation/education comments: [employer] Gender identity (if verbalized by the patient): Male Exam Narrative: GENERAL: well-appearing, no acute distress. EYES: conjunctivae clear ENT: Mucous membranes moist. TM pearly [place] with normal light reflex bilaterally; no tragal tenderness. Oropharynx not erythematous without lesions. Tonsils absent. No drooling, no hoarseness, no trismus, uvula midline. No tripod positioning, hot potato voice, or soft palate swelling. NECK: Supple. No lymphadenopathy CHEST: Clear to auscultation, breath sounds equal. HEART: Regular rate and rhythm. No murmur heard. SKIN: Warm, dry, no rash. NEURO: Alert and oriented x3. Course Course Emergency Course: Patient is aware of diagnosis, understands and agrees to treatment plan. Anticipatory guidance given. Patient agrees to follow-up as directed and is aware of reasons to seek care at the emergency department. Portions of this record may have been created with voice recognition software Level of Care: Express Care Visit Vital Signs Vital signs: Vital Signs Temperature 97.3 F L 07/23/22 14:02 Pulse Rate 82 07/23/22 14:02 Respiratory Rate 16 07/23/22 14:02 Blood Pressure 114/99 H 07/23/22 14:02 Pulse Oximetry 96 07/23/22 14:02 Temperature 97.3 F L 07/23/22 14:02 Pulse Rate 82 07/23/22 14:02 Respiratory Rate 16 07/23/22 14:02 Blood Pressure 114/99 H 07/23/22 14:02 Pulse Oximetry 96 07/23/22 14:02 MDM - URI/Sore Throat MDM Narrative Medical decision making narrative: strep result reviewed with pt. Advise supportive treatments. Patient is appropriate for outpatient treatment and follow-up. Differential Diagnosis Differential diagnosis: Likely upper respiratory infection, sinusitis, vi
[2022-07-23 14:07] VITALS: BP 114/99; PULSE 82; RESP 16; TEMP 36.3; O2SAT 96
== END 2022-07-23 14:15 | disposition home or self-care (01) ==
PROVIDERS: Emergency Provider Nurse Practitioner Family; PCP Family Medicine
DX: B34.9 Viral infection, unspecified (principal); I10 Essential (primary) hypertension; Z87.891 Personal history of nicotine dependence
CPT/HCPCS: 87081; 87880; 99213; G0463

== ENCOUNTER 2022-08-03 09:04 | Outpatient (CLI) | payer OTHER, SELFPAY ==
--- NOTE | ~2022-08-03 | XR_ITS ---
EXAMINATION: XR sacrum coccyx min 2V DATE: 08/03/2022 09:23 INDICATION: Sacrococcygeal disorder. TECHNIQUE: 3 views of the sacrum and coccyx were obtained. COMPARISON: Lumbar spine MRI 03/28/2022, lumbar spine radiographs 02/24/2022 FINDINGS: There is 3 mm retrolisthesis of L4 on L5 and L5 on S1. There is moderate lower lumbar spond ylosis. No fracture. The sacroiliac joints are normal. IMPRESSION: 1. Normal sacrum and coccyx. 2. Moderate lower lumbar spondylosis. Reviewed, dictated and finalized at location D. 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
== END 2022-08-03 09:05 | disposition home or self-care (01) ==
PROVIDERS: PCP Family Medicine; Visit Provider Nurse Practitioner Family
DX: M53.3 Sacrococcygeal disorders, not elsewhere classified (principal); M47.896 Other spondylosis, lumbar region
CPT/HCPCS: 72220

== ENCOUNTER 2022-10-05 10:17 | Outpatient (CLI) | payer OTHER, SELFPAY ==
--- NOTE | 2022-10-05 10:23 | EST_ITS ---
Patient Info Name: Jacky Hampton Age: 42 years : 1980 Gender: Male Ht: 68 in Wt: 198 lbs BSA: 2.10 m2 Technical Quality: Good Exam Date: 10/05/2022 10:59 AM Exam Location: [facility] Patient Status: Outpatient Admit Date: 10/05/2022 Staff Ordering Physician: Vic Aguila DO Attending Provider: Vic Aguila DO Exam Type: CA stress test treadmill Summary 1. 1. Negative Olu exercise stress test for ischemic ST changes by ECG criteria. 2. 2. Good functional capacity, achieving 10 METs of workload. 3. 3. Appropriate HR response to exercise. 4. 4. Appropriate HR recovery at 1 minute post exercise. 5. 5. No imaging with stress testing. Protocol: Olu Stress ECG Details Stage: REST Duration (min): 0 min : 52 sec Speed (mph): 0.0 Grade (%): 0 HR (bpm): 75 SBP (mmHg): 151 DBP (mmHg): 81 METS: --- Stage: REST Duration (min): 1 min : 37 sec Speed (mph): 0.0 Grade (%): 0 HR (bpm): 86 SBP (mmHg): 151 DBP (mmHg): 81 METS: --- Stage: STAGE 1 Duration (min): 1 min : 0 sec Speed (mph): 1.7 Grade (%): 10 HR (bpm): 105 SBP (mmHg): 151 DBP (mmHg): 81 METS: --- Stage: STAGE 1 Duration (min): 2 min : 0 sec Speed (mph): 1.7 Grade (%): 10 HR (bpm): 113 SBP (mmHg): 151 DBP (mmHg): 81 METS: --- Stage: STAGE 1 Duration (min): 3 min : 0 sec Speed (mph): 1.7 Grade (%): 10 HR (bpm): 113 SBP (mmHg): 151 DBP (mmHg): 81 METS: --- Stage: STAGE 2 Duration (min): 1 min : 0 sec Speed (mph): 2.5 Grade (%): 12 HR (bpm): 125 SBP (mmHg): 151 DBP (mmHg): 81 METS: --- Stage: STAGE 2 Duration (min): 2 min : 0 sec Speed (mph): 2.5 Grade (%): 12 HR (bpm): 132 SBP (mmHg): 121 DBP (mmHg): 68 METS: --- Stage: STAGE 2 Duration (min): 3 min : 0 sec Speed (mph): 2.5 Grade (%): 12 HR (bpm): 139 SBP (mmHg): 112 DBP (mmHg): 71 METS: --- Stage: STAGE 3 Duration (min): 1 min : 0 sec Speed (mph): 3.4 Grade (%): 14 HR (bpm): 152 SBP (mmHg): 112 DBP (mmHg): 71 METS: --- Stage: STAGE 3 Duration (min): 2 min : 0 sec Speed (mph): 3.4 Grade (%): 14 HR (bpm): 160 SBP (mmHg): 112 DBP (mmHg): 71 METS: --- Stage: STAGE 3 Duration (min): 2 min : 0 sec Speed (mph): 3.4 Grade (%): 14 HR (bpm): 160 SBP (mmHg): 112 DBP (mmHg): 71 METS: --- Stage: RECOVERY Duration (min): 0 min : 59 sec Speed (mph): 0.0 Grade (%): 0 HR (bpm): 126 SBP (mmHg): 131 DBP (mmHg): 57 METS: --- Stage: RECOVERY Duration (min): 1 min : 59 sec Speed (mph): 0.0 Grade (%): 0 HR (bpm): 76 SBP (mmHg): 162 DBP (mmHg): 68 METS: --- Stage: RECOVERY Duration (min): 2 min : 59 sec Speed (mph): 0.0 Grade (%): 0 HR (bpm): 73 SBP (mmHg): 162 DBP (mmHg): 68 METS: --- Stage: RECOVERY Duration (min): 3
[2022-10-05 10:38] LABS: Hematocrit 41.3 % (40.0-54.0); Hemoglobin 14.2 g/dL (14.0-18.0); Mean Corpuscular HGB Conc 34.4 g/dL (32.0-36.0); Mean Corpuscular Hemoglobin 29.2 pg (27.0-31.0); Mean Corpuscular Volume 84.8 fL (78.0-102.0); Mean Platelet Volume 10.2 fl (8.7-11.0); Platelet Count Result 227 K/mm3 (150-420); Red Blood Count 4.87 M/mm3 (4.70-6.10); Red Cell Distribution Width 13.2 % (11.6-14.4); White Blood Count 7.8 K/mm3 (4.8-10.8)
[2022-10-05 11:21] LABS: Alanine Aminotransferase 18 U/L (16-63); Albumin Level 3.9 g/dL (3.4-5.0); Alkaline Phosphatase 89 U/L (46-116); Anion Gap 8 mmol/L (8-16); Aspartate Amino Transferase 13 U/L (15-37); Bilirubin,Total 0.4 mg/dL (0.00-1.00); Blood Urea Nitrogen 13 mg/dL (7-18); Calcium 8.8 mg/dL (8.5-10.1); Carbon Dioxide 27 mmol/L (21-32); Chloride 106 mmol/L (98-108); Estimated Glomerular Filt Rate > 60; Glucose 97 mg/dL (70-99); NT Pro B Type Natriuretic Pept 39 pg/mL (0-125); Osmolality Calculated 292 mOsm/kg (285-295); Potassium 4.2 mmol/L (3.5-5.1); Sodium 141 mmol/L (136-145); Thyroid Stimulating Hormone Reflex 0.31 u/IU/mL (0.36-3.74); Total Protein 6.9 g/dL (6.4-8.2)
[2022-10-05 11:22] LABS: Free T4 Free Thyroxine Reflex 0.84 ng/dL (0.76-1.46)
== END 2022-10-05 10:18 | disposition home or self-care (01) ==
PROVIDERS: PCP Family Medicine; Visit Provider Family Medicine
DX: E11.9 Type 2 diabetes mellitus without complications (principal); R06.09 Other forms of dyspnea
CPT/HCPCS: 36415; 80053; 83880; 84439; 84443; 85027; 93017

== ENCOUNTER 2022-11-13 08:55 | Outpatient (CLI) | payer OTHER, SELFPAY ==
--- NOTE | 2022-11-22 16:47 | WPDPFTINT ---
PFT Procedure Performed PFT Procedure Performed Plethysmography (Lung Vol) Diffusing Cap (DLCO) Flow Vol Loop Spirometry w/o Bronchodil PFT Interpretation DOS: 11/13/2022 REQUESTING: Vic Aguila DO REASON FOR TESTING: Dyspnea PULMONARY FUNCTION TESTS Spirometry: FEV1 is 4.46 L, 123% predicted, normal. FVC is 5.63 L, 124% predicted, normal. FEV1/FVC ratio is 79%, normal. No bronchodilator was administered. Lung volumes: Total lung capacity is 6.75 L, 105% predicted. This is normal. Residual volume is 1.13 L, 58% predicted, not elevated. RV/TLC is 17% predicted, not elevated. Airway resistance is 1.98, 139% predicted, elevated. Diffusion: DLCO is 24.8, 87%, normal. DLCO/VA is 3.63, 86% predicted, normal. Flow volume loop: Unremarkable IMPRESSION: Normal spirometry, normal lung volumes, and normal diffusion. No bronchodilator was given due to methacholine challenge following this study. No prior study for comparison. Maria E Del Valle MD
--- NOTE | 2022-11-22 16:58 | WPDMETH ---
Methacholine Procedure Perform Procedure Performed Methacholine Challenge Methacholine Challenge Methacholine Challenge: DOS: 11/13/2022 REQUESTING: Vic Aguila DO REASON FOR TESTING: Dyspnea METHACHOLINE CHALLENGE Findings Baseline FEV1 4.46 L, 123% predicted Post diluent FEV1 4.50 L, 124% predicted Post-1.81 mcg methacholine FEV1 4.19 L, 115% predicted, decreased 7% Post-7.26 mcg methacholine FEV1 4.41 L, 121% predicted, decreased 2% Post-29.03 mcg methacholine FEV1 4.31 L, 118% predicted, decreased 4% Post-116.1 mcg methacholine FEV1 3.31 L, 91% predicted. This is a 26% drop in flow. Post-464.4 mcg methacholine FEV1 test was terminated after the previous dose Post albuterol nebulization FEV1 4.61 L, 127% predicted The test was stopped after the fourth dose with 26% drop in FEV1. A decrease of 20% in the FEV1 is a positive result, and the testing is terminated. Flows returned to normal after bronchodilator was administered. IMPRESSION: This is a positive methacholine challenge with the PD20 116.1 mcg methacholine on the 4th dose. This is consistent with borderline airway hyperresponsiveness. There is no prior methacholine challenge study for comparison. The best use for a methacholine challenge is to rule out asthma. Clinical correlation is advised. Maria E Del Valle MD
== END 2022-11-13 08:56 | disposition home or self-care (01) ==
LOC: CHSCARD 08:56
PROVIDERS: PCP Family Medicine; Visit Provider Family Medicine
DX: R06.09 Other forms of dyspnea (principal)
CPT/HCPCS: 94010; 94070; 94726; 94729; A9270; J7674

== ENCOUNTER 2023-03-26 12:51 | Emergency (ER) | payer OTHER, SELFPAY ==
[2023-03-26 12:58] VITALS: BP 102/64; PULSE 99; RESP 16; TEMP 36.2; O2SAT 99
[2023-03-26 13:02] VITALS: BP 102/64; PULSE 99; RESP 16; TEMP 36.2; O2SAT 99
--- NOTE | 2023-03-26 13:16 | ED.URI ---
HPI - URI/Sore Throat General Chief Complaint: Upper Respiratory Infection Stated Complaint: Chest Congestion Time Seen by Provider: 03/26/23 13:17 Source: patient, RN notes reviewed and old records reviewed Mode of arrival: ambulatory Limitations: no limitations History of Present Illness HPI Narrative: 42-year-old male presents to the [facility] with complaints of a nonproductive cough for 5 days. Has taken Mucinex. Patient denies any fevers. Denies any head congestion. Denies any chest pain, shortness of breath or abdominal pain. Related Data Home Medications Medication Instructions Recorded Confirmed lamotrigine 150 mg tablet 150 mg PO DAILY 07/23/22 03/26/23 eszopiclone 1 mg tablet 3 mg PO HS 03/26/23 03/26/23 lumateperone 42 mg capsule 42 mg PO DAILY 03/26/23 03/26/23 (Caplyta) venlafaxine 150 mg 150 mg PO DAILY 03/26/23 03/26/23 capsule,extended release 24 hr venlafaxine 37.5 mg 37.5 mg PO DAILY 03/26/23 03/26/23 capsule,extended release 24 hr Allergies Allergy/AdvReac Type Severity Reaction Status Date / Time codeine Allergy Mild Hives Verified 03/26/23 12:57 tramadol Allergy Unknown Rash Verified 03/26/23 12:57 Review of Systems Review of Systems: All systems reviewed & are unremarkable except as noted in HPI and below Constitutional: Constitutional: Reports no additional constitutional complaints Eyes: Eyes: Reports no additional eye complaints ENT: Reports system reviewed and no additional complaints, except as documented Cardiovascular: Cardiovascular: Reports no additional cardiovascular complaints, Denies chest pain and Denies dyspnea Respiratory: Respiratory: Reports as per HPI, Denies chest congestion, Reports cough and Denies dyspnea Gastrointestinal: Gastrointestinal: Reports no additional gastrointestinal complaints, Denies abdominal pain, Denies nausea and Denies vomiting Musculoskeletal: Musculoskeletal: Reports no additional musculoskeletal complaints Integumentary/Breasts: Skin/Breast: Reports system reviewed and no additional complaints, except as docu Neurologic: Reports system reviewed and no additional complaints, except as documented Psychiatric: Psychiatric: Reports no additional psychiatric complaints Allergic/Immunologic: Allergic/Immunologic: Reports no additional allergic/immunologic complaints PMFSH Past Medical History Medical History Anxiety Bladder wall thickening DDD (degenerative disc disease), thoracolumbar ERIKA (generalized anxiety disorder) HTN (hypertension) Hypertension Irritable bowel syndrome (IBS) Irritable bowel syndrome with diarrhea Low TSH level Polyarthralgia Surgical History Surgical History No history of previous surgery Family History Family History Father Hepatitis C Social History Social History Years smoked: 19 Smoking status: Former smoker Smoking end date: 05/31/12 Additional smoking assessment comments: Lee Ann uses e-cigarettes 04/18/19 Alcohol intake: never Substance use: former Substance use type: does not use Other substance usage details: Reports he had been in drug rehab in the past . 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 There is no relevant family history pertinent to the patient complaint. Exam Const: General: cooperative, healthy appearing, comfortable, no acute distress, well developed, alert and well nourished Nutritional Appearance: well nourished Orientation/consciousness: patient oriented x3 Limi
== END 2023-03-26 13:29 | disposition home or self-care (01) ==
PROVIDERS: Emergency Provider Nurse Practitioner; PCP Family Medicine
DX: J40 Bronchitis, not specified as acute or chronic (principal); Z87.891 Personal history of nicotine dependence; I10 Essential (primary) hypertension; M51.35 Other intervertebral disc degeneration, thoracolumbar region; F41.1 Generalized anxiety disorder
CPT/HCPCS: 99213; G0463

== ENCOUNTER 2023-04-28 18:36 | Emergency (ER) | payer MEDICAID, SELFPAY ==
[2023-04-28 18:41] VITALS: BP 112/86; PULSE 92; RESP 16; TEMP 36.7; O2SAT 97
--- NOTE | 2023-04-28 19:46 | ED.URI ---
HPI - URI/Sore Throat General Chief Complaint: Upper Respiratory Infection Stated Complaint: COUGH Time Seen by Provider: 04/28/23 19:40 Source: patient and RN notes reviewed Mode of arrival: ambulatory Limitations: no limitations History of Present Illness HPI Narrative: Patient presents today complaining of a 1+ month history of cough with occasional headache and occasional shortness of breath with exertion. States cough has been worsening over the past 2-3 days. Patient was seen at [facility] on 03/26/2023, diagnosed with bronchitis and placed on 20 mg prednisone daily for 5 days. States symptoms did not improve with this prescription. He has also been occasionally taking ibuprofen and Tessalon Perles without relief. Related Data Home Medications Medication Instructions Recorded Confirmed lamotrigine 150 mg tablet 150 mg PO DAILY 07/23/22 04/28/23 eszopiclone 1 mg tablet 3 mg PO HS 03/26/23 04/28/23 lumateperone 42 mg capsule 42 mg PO DAILY 03/26/23 04/28/23 (Caplyta) venlafaxine 150 mg 150 mg PO DAILY 03/26/23 04/28/23 capsule,extended release 24 hr venlafaxine 37.5 mg 37.5 mg PO DAILY 03/26/23 04/28/23 capsule,extended release 24 hr atomoxetine 25 mg capsule 25 mg PO DAILY 04/28/23 04/28/23 (Strattera) cyproheptadine 4 mg tablet 4 mg PO HS 04/28/23 04/28/23 Allergies Allergy/AdvReac Type Severity Reaction Status Date / Time codeine Allergy Mild Hives Verified 04/28/23 18:59 tramadol Allergy Unknown Rash Verified 04/28/23 18:59 Review of Systems Review of Systems: CONSTITUTIONAL: Denies body aches, fever, chills, or sweats. EYES: Denies visual changes, redness, or discharge. ENT: Denies rhinorrhea, congestion, sore throat, or otalgia. CARDIOVASCULAR: Denies chest pain, palpitations, or edema. RESPIRATORY: + cough, shortness of breath with exertion GASTROINTESTINAL: Denies abdominal pain, nausea, vomiting, or diarrhea. GENITOURINARY: Denies dysuria or hematuria. SKIN: Denies rash, itching, or wounds. MUSCULOSKELETAL: Denies back pain, joint pain, or myalgia. NEUROLOGIC: Denies numbness, tingling, or weakness.+ headache PSYCH: Denies depression or anxiety. [facility] Past Medical History Medical History Anxiety Bladder wall thickening DDD (degenerative disc disease), thoracolumbar ERIKA (generalized anxiety disorder) HTN (hypertension) Hypertension Irritable bowel syndrome (IBS) Irritable bowel syndrome with diarrhea Low TSH level Polyarthralgia Surgical History Surgical History No history of previous surgery Family History Family History Father Hepatitis C Social History Social History Years smoked: 19 Smoking status: Former smoker Smoking end date: 05/31/12 Additional smoking assessment comments: Lee Ann uses e-cigarettes 04/18/19 Alcohol intake: never Substance use: former Substance use type: does not use Other substance usage details: Reports he had been in drug rehab in the past . 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 Please see nursing chart for further information. There is no relevant family history pertinent to the presenting complaint Exam Narrative: GENERAL: Well-appearing, well-nourished, and in no acute distress. HEAD: Normocephalic, atraumatic. EYES: EOMI. No redness or drainage. Conjunctivae normal. ENT: Mucous membranes pink and moist. Nares clear. No rhinorrhea. TMs normal bilaterally. Throat normal. Uvula midli
== END 2023-04-28 19:55 | disposition home or self-care (01) ==
PROVIDERS: Emergency Provider Nurse Practitioner; PCP Family Medicine
DX: J06.9 Acute upper respiratory infection, unspecified (principal); Z87.891 Personal history of nicotine dependence; I10 Essential (primary) hypertension; M25.50 Pain in unspecified joint; M51.35 Other intervertebral disc degeneration, thoracolumbar region; F41.1 Generalized anxiety disorder
CPT/HCPCS: 99213; G0463

== ENCOUNTER 2023-09-27 10:14 | Emergency (ER) | payer OTHER, SELFPAY ==
[2023-09-27 10:20] VITALS: BP 114/82; PULSE 98; RESP 18; TEMP 36.2; O2SAT 100
--- NOTE | 2023-09-27 11:06 | ED.URI ---
HPI - URI/Sore Throat General Chief Complaint: Upper Respiratory Infection Stated Complaint: Strep Symptoms Time Seen by Provider: 09/27/23 11:06 Source: patient, RN notes reviewed and old records reviewed Mode of arrival: ambulatory Limitations: no limitations History of Present Illness HPI Narrative: 42-year-old male presents to the [facility] with complaints dry scratchy throat for 1 week, intermittent shortness of breath since yesterday. No treatment prior to arrival Patient has and uses albuterol since yesterday Denies any other symptoms Treatments prior to arrival: none Related Data Home Medications Medication Instructions Recorded Confirmed lamotrigine 150 mg tablet 150 mg PO DAILY 07/23/22 04/28/23 eszopiclone 1 mg tablet 3 mg PO HS 03/26/23 04/28/23 lumateperone 42 mg capsule 42 mg PO DAILY 03/26/23 04/28/23 (Caplyta) venlafaxine 150 mg 150 mg PO DAILY 03/26/23 04/28/23 capsule,extended release 24 hr venlafaxine 37.5 mg 37.5 mg PO DAILY 03/26/23 04/28/23 capsule,extended release 24 hr atomoxetine 25 mg capsule 25 mg PO DAILY 04/28/23 04/28/23 (Strattera) Allergies Allergy/AdvReac Type Severity Reaction Status Date / Time codeine Allergy Mild Hives Verified 09/27/23 11:20 tramadol Allergy Unknown Rash Verified 09/27/23 11:20 Review of Systems Review of Systems: All systems reviewed & are unremarkable except as noted in HPI and below Constitutional: Constitutional: Reports no additional constitutional complaints Eyes: Eyes: Reports no additional eye complaints ENT: Reports as per HPI Cardiovascular: Cardiovascular: Reports no additional cardiovascular complaints, Denies chest pain and Denies dyspnea Respiratory: Respiratory: Reports as per HPI, Denies chest congestion, Denies cough and Reports dyspnea Gastrointestinal: Gastrointestinal: Reports no additional gastrointestinal complaints, Denies abdominal pain, Denies nausea and Denies vomiting Musculoskeletal: Musculoskeletal: Reports no additional musculoskeletal complaints Integumentary/Breasts: Skin/Breast: Reports system reviewed and no additional complaints, except as docu Neurologic: Reports system reviewed and no additional complaints, except as documented Psychiatric: Psychiatric: Reports no additional psychiatric complaints Allergic/Immunologic: Allergic/Immunologic: Reports no additional allergic/immunologic complaints PMFSH Past Medical History Medical History Anxiety Bladder wall thickening DDD (degenerative disc disease), thoracolumbar ERIKA (generalized anxiety disorder) HTN (hypertension) Hypertension Irritable bowel syndrome (IBS) Irritable bowel syndrome with diarrhea Low TSH level Polyarthralgia Surgical History Surgical History No history of previous surgery Family History Family History Father Hepatitis C Social History Social History Years smoked: 19 Smoking status: Former smoker Smoking end date: 05/31/12 Additional smoking assessment comments: Lee Ann uses e-cigarettes 04/18/19 Alcohol intake: never Substance use: former Substance use type: does not use Other substance usage details: Reports he had been in drug rehab in the past . 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 There is no relevant family history pertinent to the patient complaint. Exam Const: General: cooperative, healthy appearing, comfortable, no acute distress, well developed, alert and well nourished Nutritional Appearance: wel
== END 2023-09-27 11:21 | disposition home or self-care (01) ==
PROVIDERS: Emergency Provider Nurse Practitioner; PCP Family Medicine
DX: J20.9 Acute bronchitis, unspecified (principal); I10 Essential (primary) hypertension; M51.35 Other intervertebral disc degeneration, thoracolumbar region; F41.1 Generalized anxiety disorder
CPT/HCPCS: 87081; 87880; 99213; G0463

== ENCOUNTER 2023-11-10 13:22 | Emergency (ER) | payer OTHER, SELFPAY ==
--- NOTE | 2023-11-10 13:24 | ED.URI ---
HPI - URI/Sore Throat General Chief Complaint: Upper Respiratory Infection Stated Complaint: COUGH/SORE THROAT Time Seen by Provider: 11/10/23 13:24 Source: patient Mode of arrival: ambulatory Limitations: no limitations History of Present Illness HPI Narrative: Patient is a 43-year-old male who presents with 5 days of sore throat. The last 4 days he has had cough, congestion, headache and wheezing. Other symptoms have since resolved. Patient has family members that have strep throat. Denies any fever, chills, nausea, vomiting, diarrhea. Related Data Home Medications Medication Instructions Recorded Confirmed lamotrigine 150 mg tablet 150 mg PO DAILY 07/23/22 11/10/23 eszopiclone 1 mg tablet 3 mg PO HS 03/26/23 11/10/23 lumateperone 42 mg capsule 42 mg PO DAILY 03/26/23 11/10/23 (Caplyta) venlafaxine 150 mg 150 mg PO DAILY 03/26/23 11/10/23 capsule,extended release 24 hr venlafaxine 37.5 mg 37.5 mg PO DAILY 03/26/23 11/10/23 capsule,extended release 24 hr viloxazine 100 mg capsule,extended 400 mg PO DAILY 10/15/23 11/10/23 release 24 hr (Qelbree) Allergies Allergy/AdvReac Type Severity Reaction Status Date / Time codeine Allergy Mild Hives Verified 10/15/23 07:34 tramadol Allergy Unknown Rash Verified 10/15/23 07:34 Review of Systems Review of Systems: All systems reviewed & are unremarkable except as noted in HPI and below Constitutional: Constitutional: Denies body ache(s), Denies chills, Denies fatigue, Denies fever(s), Denies headache(s), Denies malaise and Denies weakness Eyes: Eyes: Denies blurry vision, Denies itchy eyes and Denies loss of vision ENT: Denies otalgia, Denies headache(s), Denies nasal congestion, Denies sinus pain and Reports sore throat Cardiovascular: Cardiovascular: Denies chest pain, Denies irregular heart rhythm and Denies dyspnea Respiratory: Respiratory: Denies cough and Denies dyspnea Gastrointestinal: Gastrointestinal: Denies abdominal pain, Denies diarrhea, Denies nausea and Denies vomiting Musculoskeletal: Musculoskeletal: Denies back pain, Denies myalgias and Denies arthralgias Integumentary/Breasts: Skin/Breast: Denies pruritus and Denies rash Neurologic: Denies headache(s), Denies loss of vision and Denies weakness Psychiatric: Psychiatric: Reports no additional psychiatric complaints Endocrine: Endocrine: Denies fatigue Allergic/Immunologic: Allergic/Immunologic: Denies itchy eyes PMFSH Past Medical History Medical History Anxiety Bladder wall thickening DDD (degenerative disc disease), thoracolumbar ERIKA (generalized anxiety disorder) HTN (hypertension) Hypertension Irritable bowel syndrome (IBS) Irritable bowel syndrome with diarrhea Low TSH level Polyarthralgia Surgical History Surgical History No history of previous surgery Family History Family History Father Hepatitis C Social History Social History Years smoked: 19 Smoking status: Former smoker Smoking end date: 05/31/12 Additional smoking assessment comments: Lee Ann uses e-cigarettes 04/18/19 Alcohol intake: never Substance use: former Substance use type: does not use Other substance usage details: Reports he had been in drug rehab in the past . 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 There is no relevant family history pertinent to the presenting complaint. Exam Const: General: cooperative, healthy appearing, comfortable, no acute distress and well nourished Nutritional Appearance: well nouris
[2023-11-10 13:35] VITALS: BP 145/91; PULSE 96; RESP 15; TEMP 36.5; O2SAT 100
== END 2023-11-10 13:58 | disposition home or self-care (01) ==
PROVIDERS: Emergency Provider Nurse Practitioner Family; PCP Family Medicine
DX: J06.9 Acute upper respiratory infection, unspecified (principal); F17.290 Nicotine dependence, other tobacco product, uncomplicated; I10 Essential (primary) hypertension; M51.35 Other intervertebral disc degeneration, thoracolumbar region; F41.1 Generalized anxiety disorder
CPT/HCPCS: 87081; 87880; 99213; G0463

== ENCOUNTER 2024-07-01 11:49 | Emergency (ER) | payer OTHER, SELFPAY ==
--- NOTE | 2024-07-01 12:36 | ED_ITS ---
HPI - URI/Sore Throat General Chief Complaint: Upper Respiratory Infection Stated Complaint: Strep Symptoms Time Seen by Provider: 07/01/24 12:35 Source: patient Mode of arrival: ambulatory Limitations: no limitations History of Present Illness HPI Narrative: Jacky is a 43-year-old male patient presenting to the clinic today with complaints of sore throat and runny nose x1 day. He denies any fevers, chills, body aches. No shortness of breath or chest pain. Denies any headache. MD elicited complaint: sore throat and nasal congestion Related Data Home Medications ?Medication ?Instructions ?Recorded ?Confirmed ?Last Taken ?Type lamotrigine 150 mg tablet 150 mg PO DAILY 07/23/22 05/09/24 Unknown History eszopiclone 1 mg tablet 3 mg PO HS 03/26/23 05/09/24 Unknown History lumateperone 42 mg capsule 42 mg PO DAILY 03/26/23 05/09/24 Unknown History (Caplyta) venlafaxine 150 mg 150 mg PO DAILY 03/26/23 05/09/24 Unknown History capsule,extended release 24 hr viloxazine 100 mg capsule,extended 400 mg PO DAILY 10/15/23 05/09/24 Unknown History release 24 hr (Qelbree) Allergies Allergy/AdvReac Type Severity Reaction Status Date / Time codeine Allergy Mild Hives Verified 05/09/24 11:38 tramadol Allergy Unknown Rash Verified 05/09/24 11:38 Review of Systems Review of Systems: Pertinent positives per HPI. Patient denies any fever, chills, rash, headache, visual changes, dizziness, shortness of breath, chest pain, palpitations, nausea, vomiting, diarrhea, constipation, abdominal pain, or any urinary issues. [facility] Past Medical History Medical History Irritable bowel syndrome with diarrhea Irritable bowel syndrome (IBS) Low TSH level Polyarthralgia Anxiety Hypertension DDD (degenerative disc disease), thoracolumbar Bladder wall thickening ERIKA (generalized anxiety disorder) HTN (hypertension) Surgical History Surgical History No history of previous surgery Family History Family History Father Hepatitis C Social History Social History Years smoked: 19 Smoking status: Former smoker Smoking end date: 05/31/12 Additional smoking assessment comments: Lee Ann uses e-cigarettes 04/18/19 Alcohol intake: never Substance use: former Substance use type: does not use Other substance usage details: Reports he had been in drug rehab in the past . 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 There is no relevant family history pertinent to the patient complaint. Exam Narrative: General: Well-developed, well nourished, in no apparent distress Head: Normocephalic, atraumatic Eyes: Pupils equally round and reactive to light bilaterally, EOM intact, sclera and conjunctive clear, no discharge, lids normal Ears: TMs intact and clear, ear canals clear, no drainage, grossly hearing normal. Nose: Nares patent, clear nasal discharge, moderate inflammation, no sinus tenderness. Mouth: Oral pharynx without lesions or masses, good dentition, MMM. Postnasal drip Neck: Supple, trachea midline, no enlargement of anterior or posterior cervical nodes, no thyroid masses or goiter palpable. Cardio: Regular rate and rhythm, s1 and s2 normal, no murmur appreciated. Resp: Clear to auscultation bilaterally, no rhonchi, rales, wheezing or rubs Course Course Emergency Course: Portions of this record may have been created with voice recognition software. Level of Care: Express Care Visit Vital Signs Vital signs: Vital signs reviewed MDM - URI/Sore Throat MDM Narrative Medical decision making narrative: At the time of visit patient is resting comfortably on the exam table. Patient appears to be nontoxic. Labs: Strep test was obtained and negative. We will send for culture. Plan: Offer to do COVID testing and patient declined. Strep test was negative. I suspect patient has URI/pharyngitis. Supportive measures were discussed with the patient and they voiced understanding discharge instructions and agrees to treatment plan. Return precautions reviewed Differential Diagnosis Differential diagnosis: Likely upper respiratory infection, otitis media, sinusitis, viral infection, bronchitis, influenza, pharyngitis and other (COVID) Discharge Plan Discharge Clinical Impression: Upper respiratory infection Qualifiers: URI type: unspecified URI Qualified Code(s): J06.9 - Acute upper respiratory infection, unspecified Pharyngitis Qualifiers: Pharyngitis/tonsillitis etiology: unspecified etiology Qualified Code(s): J02.9 - Acute pharyngitis, unspecified Patient Disposition: Home, Self-Care Condition: Stable Instructions: Antibiotic Form, Pharyngitis (ED), Cold Symptoms (ED) Additional Instructions: Strep test was negative in the clinic today. We will send strep for culture if this comes back positive we will contact him place you on antibiotics at that time. Increase fluids and stay well hydrated Tylenol/motrin for pain/fever Flonase and OTC antihistamines as directed Vicks vapor rub to open sinuses Sinus rinses for congestion Cepacol spray, cough drops, throat lozenges, warm tea with honey/lemon, gargle salt water to soothe throat BRAT diet for diarrhea Clear liquids x 24 hours then advance as tolerated for nausea/vomiting Go to the ED if you develop a worsening in your condition- high fever not controlled by Tylenol or Motrin, dehydration, weakness, lethargy, shortness of breath, or chest pain. Follow up with your PCP in 3-5 days if symptoms persist. Patient Language: Dutch Prescriptions: No Action venlafaxine 150 mg capsule,extended release 24hr 150 mg PO DAILY eszopiclone 1 mg tablet 3 mg PO HS Caplyta 42 mg capsule 42 mg PO DAILY (DME) Aerochamber MV Spacer See Rx Instructions .Route Qty: 1 0RF Rx Instructions: As directed lamotrigine 150 mg tablet 150 mg PO DAILY pregabalin [Lyrica] 225 mg capsule 225 mg PO BID Qty: 60 2RF Airsupra 90-80 mcg/actuation HFA aerosol inhaler 2 inh inhalation ONCE Qty: 10.7 0RF Rx Instructions: as a single dose; may repeat up to 6 doses per day (12 inhalations) budesonide-formoterol [Symbicort] 160-4.5 mcg/actuation HFA aerosol inhaler 1 inh inhalation ONCE Qty: 10.2 11RF Qelbree 100 mg capsule,extended release 24hr 400 mg PO DAILY montelukast 10 mg tablet See Rx Instructions .ROUTE .COMPLEX Qty: 90 0RF Dose Instruction: Take 1 tablet by mouth once daily Rx Instructions: Take 1 tablet by mouth once daily cyclobenzaprine 10 mg tablet See Rx Instructions .ROUTE .COMPLEX Qty: 60 0RF Dose Instruction: TAKE 1 TABLET BY MOUTH THREE TIMES DAILY Rx Instructions: TAKE 1 TABLET BY MOUTH THREE TIMES DAILY Follow-up/Referrals: 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
[2024-07-01 12:44] VITALS: BP 119/75; PULSE 74; RESP 16; TEMP 36.2; O2SAT 98
[2024-07-01 12:46] LABS: EDSTREPNEGPOS1 Negative (Negative)
== END 2024-07-01 12:42 | disposition home or self-care (01) ==
PROVIDERS: Emergency Provider Nurse Practitioner Family
DX: J06.9 Acute upper respiratory infection, unspecified (principal); J02.9 Acute pharyngitis, unspecified; F17.290 Nicotine dependence, other tobacco product, uncomplicated; I10 Essential (primary) hypertension; M51.35 Other intervertebral disc degeneration, thoracolumbar region; F41.9 Anxiety disorder, unspecified
CPT/HCPCS: 87081; 87880; 99213; G0463

== ENCOUNTER 2024-07-28 12:54 | Emergency (ER) | payer OTHER, SELFPAY ==
--- NOTE | 2024-07-28 12:56 | ED.URI ---
HPI - URI/Sore Throat General Chief Complaint: Upper Respiratory Infection Stated Complaint: SORE THROAT/WHITE SPOTS Time Seen by Provider: 07/28/24 12:55 Source: patient Mode of arrival: ambulatory Limitations: no limitations History of Present Illness HPI Narrative: patient is a 43-year-old male who presents with sore throat and intermittent cough that started last night. daughter is positive for strep. Denies any fever, chills, nausea, vomiting, diarrhea, congestion Related Data Home Medications ?Medication ?Instructions ?Recorded ?Confirmed ?Last Taken ?Type lamotrigine 150 mg tablet 150 mg PO DAILY 07/23/22 07/28/24 Unknown History eszopiclone 1 mg tablet 3 mg PO HS 03/26/23 07/28/24 Unknown History lumateperone 42 mg capsule 42 mg PO DAILY 03/26/23 07/28/24 Unknown History (Caplyta) venlafaxine 150 mg 150 mg PO DAILY 03/26/23 07/28/24 Unknown History capsule,extended release 24 hr viloxazine 100 mg capsule,extended 400 mg PO DAILY 10/15/23 07/28/24 Unknown History release 24 hr (Qelbree) Allergies Allergy/AdvReac Type Severity Reaction Status Date / Time codeine Allergy Mild Hives Verified 07/28/24 13:07 tramadol Allergy Unknown Rash Verified 07/28/24 13:07 Review of Systems Review of Systems: All systems reviewed & are unremarkable except as noted in HPI and below Constitutional: Constitutional: Denies chills, Denies fatigue, Denies fever(s), Denies headache(s), Denies malaise and Denies weakness Eyes: Eyes: Denies blurry vision, Denies itchy eyes and Denies loss of vision ENT: Denies otalgia, Denies headache(s), Denies nasal congestion, Denies sinus pain and Reports sore throat Cardiovascular: Cardiovascular: Denies chest pain, Denies irregular heart rhythm and Denies dyspnea Respiratory: Respiratory: Reports cough and Denies dyspnea Gastrointestinal: Gastrointestinal: Denies abdominal pain, Denies diarrhea, Denies nausea and Denies vomiting Musculoskeletal: Musculoskeletal: Denies back pain, Denies myalgias and Denies arthralgias Integumentary/Breasts: Skin/Breast: Denies pruritus and Denies rash Neurologic: Denies headache(s), Denies loss of vision and Denies weakness Psychiatric: Psychiatric: Reports no additional psychiatric complaints Endocrine: Endocrine: Denies fatigue Allergic/Immunologic: Allergic/Immunologic: Denies itchy eyes PMFSH Past Medical History Medical History Irritable bowel syndrome with diarrhea Irritable bowel syndrome (IBS) Low TSH level Polyarthralgia Anxiety Hypertension DDD (degenerative disc disease), thoracolumbar Bladder wall thickening ERIKA (generalized anxiety disorder) HTN (hypertension) Surgical History Surgical History No history of previous surgery Family History Family History Father Hepatitis C Social History Social History Years smoked: 19 Smoking status: Former smoker Smoking end date: 05/31/12 Additional smoking assessment comments: Lee Ann uses e-cigarettes 04/18/19 Alcohol intake: never Substance use: former Substance use type: does not use Other substance usage details: Reports he had been in drug rehab in the past . 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 There is no relevant family history pertinent to the presenting complaint. Exam Const: General: cooperative, healthy appearing, comfortable, no acute distress and well nourished Nutritional Appearance: well nourished Orientation/consciousness: patient oriented x3 Limitations: no limitations HENMT: Head: normal to inspection, normocephalic and atraumatic Ears: hearing grossly normal bilaterally, external ears normal, TM's normal bilaterally, EAC's normal and no periauricular adenopathy Face/Nose/Sinus: Normal external nose present, Abnormal mucous membranes and turbinates present erythematous bilateral and diffuse, normal facial exam, sinuses nontender and face symmetric Face and sinus: normal facial exam, sinuses nontender and face symmetric Mouth: Yes Normal oral and palatal mucosa present, Yes lip normal, Yes tongue normal, Yes Normal salivary glands and ducts present, Yes oropharynx normal and Yes moist mucous membranes Teeth and gingiva: dentition normal Throat: posterior oropharynx normal, tonsils normal, uvula midline and postnasal drainage Eyes: General: appearance normal, both eyes and all related structures Alignment and Position: alignment normal and position normal Periorbital: periorbital findings normal Eyelids: eyelids normal Pupils: Equal, round and reactive pupils present Neck: Neck: normal visual inspection, full ROM, no lymphadenopathy and supple Chest: Chest palpation & inspection: normal inspection of the chest and normal palpation of entire chest wall Resp: Effort & Inspection: normal respiratory effort and able to speak in complete sentences Auscultation: clear to auscultation bilaterally, no crackles, no rales, no rhonchi and no wheezes Cardio: Rate: regular rate Rhythm: regular rhythm Heart sounds: S1 normal heart sound present and S2 normal heart sound present GI: Inspection: normal to inspection Skin: General skin exam: normal color and no rashes or lesions noted Neuro: General: patient oriented x3 and moves all extremities Cranial nerves: Yes Equal, round and reactive pupils present Speech: normal speech Gait exam (Neuro): Normal gait present Extrem: General: normal to inspection, full ROM and no edema Psych: Appearance: grossly normal and well kempt Mental Status: mental status grossly normal Speech and movement: Normal speech and movement present Affect: normal affect Attitude: cooperative Thought process: Normal thought process present Course Course Emergency Course: Discharge instructions reviewed with patient, as well as provided in writing per nursing staff. The instructions also include specific and strict return/GO TO THE ER as well as f/u information. All questions have been answered, and the patient deny any further questions with discharge and discharge plan. Portions of this record may have been created with voice recognition software Level of Care: Express Care Visit Vital Signs Vital signs: Vital Signs Temperature 36.9 C 07/28/24 13:11 Pulse Rate 100 07/28/24 13:11 Respiratory Rate 16 07/28/24 13:11 Blood Pressure 125/90 07/28/24 13:11 Pulse Oximetry 97 07/28/24 13:11 Temperature 36.9 C 07/28/24 13:11 Pulse Rate 100 07/28/24 13:11 Respiratory Rate 16 07/28/24 13:11 Blood Pressure 125/90 07/28/24 13:11 Pulse Oximetry 97 07/28/24 13:11 Reviewed MDM - URI/Sore Throat MDM Narrative Medical decision making narrative: Pt well hydrated appearing, in no respiratory distress, hemodynamically stable. Recommend supportive care. The patient is stable at time of discharge the clinical impression was discussed and the patient was given the opportunity to ask questions, which were addressed as completely as possible given the information available at present. Anticipatory guidance and return to care precautions were discussed and the importance of primary care follow-up was stressed and encouraged. The patient voiced understanding of the plan, indications to return, and the need for follow-up. Differential diagnosis considered: Bronchitis, Krishna virus, strep pharyngitis, allergic rhinitis, upper respiratory tract infection, sinusitis, rhinosinusitis, nasopharyngitis. viral pharyngitis, otitis media, otitis externa, otitis effusion, foreign body, cerumen impaction, viral syndrome, and influenza.? Exam findings show no acute concerns or changes; patient is non-toxic appearing and is in no distress.? Patient is appropriate for outpatient treatment and follow-up.? Medical Records Attestation: I reviewed the patient's medical records. Lab Data Attestation: I reviewed the patient's lab results. Labs: Lab Results 07/28/24 Range/Units 13:20 POC Grp A Strep Screen Negative (Negative) Discharge Plan Discharge Clinical Impression: Pharyngitis Qualifiers: Pharyngitis/tonsillitis etiology: unspecified etiology Qualified Code(s): J02.9 - Acute pharyngitis, unspecified Patient Disposition: Home, Self-Care Condition: Stable Instructions: Pharyngitis (ED) Additional Instructions: Your rapid strep swab was negative today at [facility]. A throat culture will be sent to the laboratory for further testing. If the test is positive, you will receive a phone call within 48 hours and an appropriate antibiotic will be initiated at that time. Your symptoms are likely due to a viral illness, which is not treated with antibiotics. Viral symptoms can be present for up to a few weeks. -For pain/fever, you may take: Tylenol 650-1000mg by mouth every 4-6 hours. Do not exceed 4000mg in 24 hours. Advil (Ibuprofen) 600 mg by mouth every 6 hours. Do not exceed 2400mg in 24 hours. 8 AM: Tylenol 11 AM: Ibuprofen 2 PM: Tylenol 5 PM: Ibuprofen 8 PM: Tylenol 11 PM: Ibuprofen 2 AM: Tylenol 5 AM: Ibuprofen -Antihistamine medication such as Benadryl/Zyrtec at night and Claritin/Gabriella during the day can help improve symptoms. -Use Flonase twice a day for 5 days then daily to help reduce the inflammation and dry up your sinuses. -You can also use Sudafed behind the pharmacy counter(12 or 24 hour). Be sure to drink plenty of water with these medications at least 8 ounces with every dose and it is important to drink 8 to 10 glasses of water per day. Water is a natural decongestant -Eat and drink things that are easy to swallow, like tea or soup, or popsicles. -Oral rinses such as: Salt water gargles and/or may use topical anesthetic (eg. Chloraseptic spray) or lozenges to relieve dryness or throat pain). -Frequent hand washing or hand proof machine operator is one of the best ways to prevent spread of infection. -Using a vaporizer or humidifier at night will also help thin secretions and help with coughing up phlegm. Call your Primary Care Doctor and make a follow-up appointment in 3 days. If your cough worsens, you develop a fever greater than 103, you develop shaking chills, a fast heartbeat, trouble breathing and/or feel you are are breathing much faster than usual, call your Primary Care Doctor or go to the ER. Patient Language: Kinyarwanda Prescriptions: No Action venlafaxine 150 mg capsule,extended release 24hr 150 mg PO DAILY eszopiclone 1 mg tablet 3 mg PO HS Caplyta 42 mg capsule 42 mg PO DAILY (DME) Aerochamber MV Spacer See Rx Instructions .Route Qty: 1 0RF Rx Instructions: As directed lamotrigine 150 mg tablet 150 mg PO DAILY pregabalin [Lyrica] 225 mg capsule 225 mg PO BID Qty: 60 2RF Airsupra 90-80 mcg/actuation HFA aerosol inhaler 2 inh inhalation ONCE Qty: 10.7 0RF Rx Instructions: as a single dose; may repeat up to 6 doses per day (12 inhalations) budesonide-formoterol [Symbicort] 160-4.5 mcg/actuation HFA aerosol inhaler 1 inh inhalation ONCE Qty: 10.2 11RF Qelbree 100 mg capsule,extended release 24hr 400 mg PO DAILY montelukast 10 mg tablet See Rx Instructions .ROUTE .COMPLEX Qty: 90 0RF Dose Instruction: Take 1 tablet by mouth once daily Rx Instructions: Take 1 tablet by mouth once daily cyclobenzaprine 10 mg tablet See Rx Instructions .ROUTE .COMPLEX Qty: 60 0RF Dose Instruction: TAKE 1 TABLET BY MOUTH THREE TIMES DAILY Rx Instructions: TAKE 1 TABLET BY MOUTH THREE TIMES DAILY Follow-up/Referrals: Vic Aguila DO [Primary Care Provider] - 3 Days Time of Disposition: 13:48
[2024-07-28 13:11] VITALS: BP 125/90; PULSE 100; RESP 16; TEMP 36.9; O2SAT 97
[2024-07-28 13:23] LABS: EDSTREPNEGPOS1 Negative (Negative)
== END 2024-07-28 13:51 | disposition home or self-care (01) ==
PROVIDERS: Emergency Provider Nurse Practitioner Family; PCP Family Medicine
DX: J02.9 Acute pharyngitis, unspecified (principal); I10 Essential (primary) hypertension; F41.1 Generalized anxiety disorder; F17.290 Nicotine dependence, other tobacco product, uncomplicated
CPT/HCPCS: 87081; 87880; 99213; G0463